=== PATIENT | male | born 1975 | race Caucasian/White ===

== ENCOUNTER 2022-09-11 01:49 | Day surgery (SDC) | payer BC, SELFPAY ==
[2022-09-02 11:03] VITALS: BMI 40.6
--- NOTE | 2022-09-02 11:07 | PC.NURSE ---
Report to the Outpatient Waiting Room, entrance under the green pavilion located off [facility], at time 1300 on date 09/11/22. Planned Procedure Time: 1500. Time changes happen often and if your time is changed the preop area will call you the afternoon before. - You and your visitor will be asked to self-screen and do not enter if you have any COVID symptoms. - Only one visitor is requested with a max of two and NO children visitors are allowed at this time. - The patient visitor may be requested to leave or wait in car when not with patient due to distancing restrictions. - A mask is optional within the hospital at this time. Patients may have clear liquids (water, carbonated beverages, clear teas, apple juice) until 3 hours prior to surgery with a maximum of 20 ounces. - No food from midnight until time of surgery Take the following medications with a SIP of water the morning of surgery: INHALER DO NOT STOP ANY OF YOUR OTHER PRESCRIPTION MEDICATIONS PRIOR TO SURGERY?EXCEPT THE FOLLOWING Medications to discontinue per physician: N/A Date to take last dose: N/A Please no make-up, nail albanian, hairspray, perfume, deodorant, or body powder the day of surgery. No jewelry (including any body piercings) or valuables the day of surgery, leave them at home. Please take a shower or bath the night before, or the morning of, surgery with an antibacterial soap. Wear comfortable, loose fitting clothing. - Jewelry must be removed prior to entering the operating room. Rings and piercings that are not removed may be cut off. - The hospital will not accept responsibility for valuables. - Please leave all valuables, including medications, at home the day of surgery. If you are going home after surgery, a licensed local owner operator truck driver must drive you home. - NO public transportation without another adult if you receive anesthesia. - We recommend that an adult stay with you for 24 hours following discharge. - We also recommend that you do not drive, make important decision, drink alcoholic beverages, or take any drugs that were not prescribed by your health care provider for at least 24 hours after your discharge time. Follow any additional instructions given to you from your surgeon. If you or anyone in your household have experienced Covid symptoms in the past week, please notify your surgeon or the nurse liaison at the phone number below for possible testing. Telephone instructions given to PT - SO VELASCO and asked if any additional questions and then verbalized understanding. Patient advised to call surgeon office or pre surgery nurse liaison [phone] if any additional questions.
--- NOTE | 2022-09-10 15:19 | P.PNAN_ITS ---
Anes - Initial Pre Proc Eval Procedure: Operation Date: 09/11/22 14:30 Proposed Procedures p Cystoscopy with Urethral Lesion Biopsy - Simone Lopez MD Date/Time: 09/10/22 15:19 Surgeon: Simone Lopez MD Pre Op Diagnosis: Urethral Lesions Patient Data Age: 46 Gender: M Height: 1.83 m Weight: 136.1 kg Allergies Allergy/AdvReac Type Severity Reaction Status Date / Time No Known Allergies Allergy Verified 09/11/22 12:18 Home Medications Medication Instructions Recorded Confirmed Type albuterol sulfate 90 mcg/actuation 1 puff inhalation QID PRN 09/02/22 09/11/22 History aerosol inhaler Bronchospasm Patient hx anesthesia problems: none Family hx anesthesia problems: none Results Review: All pre-operative results and documents have been reviewed as part of the pre- operative evaluation. [facility] Past Medical History Medical History (Updated 09/10/22 @ 15:20 by Tuan Campuzano MD) COPD (chronic obstructive pulmonary disease) Morbid obesity with BMI of 40.0-44.9, adult Social History Social History Smoking packs per day: 2 Smoking cigarettes per day: 40.0 Years smoked: 20 Smoking pack-years: 40.00 Smoking status: Former smoker Tobacco type: cigarettes Smoking end date: 06/15/16 Alcohol intake: current Alcohol use details: RARE Substance use: never Substance use type: does not use Living arrangements: with family Spiritual care concerns: No Anes - Eval Final PreProcedure Day of Procedure 09/10/22 15:19 Patient weight: morbidly obese Heart: regular rate and rhythm Lungs: clear to auscultation and normal air movement Airway: Mallampati scale class II Neurological: alert and oriented Last oral intake: >/= 8 hours ASA classification: III Emergent: no Anesthetic plan: proceed Anesthesia type and monitoring: general LMA Results Review: All pre-operative results and documents have been reviewed as part of the pre- operative evaluation. Informed Consent: The patient's anesthetic plan and its attendant risks and benefits were discussed with the patient/family/POA. Questions were solicited and answers provided to the satisfaction of the patient/family/POA.
[2022-09-11] VITALS (7 sets, daily range): BP systolic 119–147; BP diastolic 67–90; PULSE 77–85; RESP 10–18; TEMP 36.2–36.6; O2SAT 96–99
--- NOTE | 2022-09-11 06:20 | WPDHPUPDATE1 ---
History and Physical Update Update Date/Time: 09/11/22 06:20 History and Physical has been reviewed, including an updated exam of the patient. There are NO changes in the patient's condition. Risks, benefits, and alternatives have been discussed and questions answered. Patient agrees to proceed with procedure.
[2022-09-11] MEDS: LACTATED RINGERS 1,000 ML 30 ML IV CONT (12:35)
[2022-09-11] MEDS: ceFAZolin 3 GM/D5W 100 ML 100 ML IVPB (13:45)
[2022-09-11] MEDS: LIDOCAINE HCL 2% GEL UROJET 10 ML PKG MUCOUS MEM (13:45)
--- NOTE | 2022-09-11 13:53 | W.PM.PROC2 ---
Procedure Note - Detailed Date of Procedure 09/11/22 Pre-op Diagnosis Urethral lesion (small, benign-appearing) Post-op Diagnosis Same Procedure Performed Cystoscopy, biopsy of prostatic urethra Surgeon Simone Lopez MD Anesthesia General Findings Solitary, benign-appearing, pimple-like lesion in the right lateral prostatic urethra. Description of Procedure Patient is brought to the operative suite was prepped draped in routine sterile fashion while in dorsal lithotomy position. 2% xylocaine jelly was introduced intraurethrally and allowed to stand for an appropriate time and systemic sedation is administered per the anesthesia department. Cystoscopy was 1st undertaken with a 19 F rigid cystoscope. There was no urethral stricture. He had CIS yellowish less than 1 cm, pimple like lesion in the right lateral prostatic lobe of that appears benign. The bladder mucosa is normal. There was no intravesical foreign body or neoplasm. Has a single orthotopic ureteral orifice with clear efflux bilaterally. The prostate itself measures about 2 cm with lateral lobe hyperplasia and no median lobe enlargement. Using a loop electrode I excised this small benign-appearing lesion in its entirety. The base and periphery were cauterized both the loop and a rollerball electrode. the scope was removed the patient was taken right recovery room in good condition. Drains No Packing No Pathology Yes Complications No immediate complications
[2022-09-11] MEDS: oxyCODONE HCL (*CRX) 5 MG TAB IR PO (15:01)
== END 2022-09-11 15:30 | disposition home or self-care (01) ==
PROVIDERS: Visit Provider Urology
PROC: 0TBB8ZX Excision of Bladder, Via Natural or Artificial Opening Endoscopic, Diagnostic (ICD-10-PCS; CPT 52204; principal; 2022-09-11 14:30)
DX: N36.2 Urethral caruncle (principal); J44.9 Chronic obstructive pulmonary disease, unspecified; Z79.51 Long term (current) use of inhaled steroids; E66.01 Morbid (severe) obesity due to excess calories; Z68.41 Body mass index [BMI] 40.0-44.9, adult; Z87.891 Personal history of nicotine dependence
CPT/HCPCS: 52204; 88305; 88342; A9270; J0690; J1100; J2250; J2405; J2704; J3010; J7120